=== PATIENT | male | born 1980 | race Asian ===

== ENCOUNTER 2019-09-25 02:36 | Emergency (ER) | payer OTHER ==
[~2019-09-25] VITALS: Ht 175.3 cm; Wt 77.1 kg
--- NOTE | 2019-09-25 02:58 | NUR ---
BIB FAMILY AND FRIEND FOR C/O R KNEE PAIN S/P FALLING FROM SLIPPERY STEPS WHI;E GOING DOWN. PT DENIED HITTING HIS HEAD. - KO. R KNEE SKIN INTACT. - BRUISE NOTED AT TIME. VSS. WILL CONT TO MONITOR ,
[2019-09-25] MEDS ORDERED: IBUPROFEN 600 MG TABLET PO ONE (03:02)
[2019-09-25] MEDS: IBUPROFEN 600 MG TABLET PO ONE (03:04)
--- NOTE | 2019-09-25 06:06 | NUR ---
pt was provided w/ crutches and long posterior hard splint. instruction given for use of crutches w/ understanding and demonstration. Patient discharged to home in stable condition. Rx and Written and verbal after care instructions given. Patient verbalizes understanding of instruction.
[2019-09-25 06:09] VITALS: BP 137/57
== END 2019-09-25 06:11 | disposition home or self-care (01) ==
LOC: ER 02:37
DX: S82.141A Displaced bicondylar fracture of right tibia, initial encounter for closed fracture (principal); F17.200 Nicotine dependence, unspecified, uncomplicated; W10.8XXA Fall (on) (from) other stairs and steps, initial encounter; Y93.89 Activity, other specified; Y92.89 Other specified places as the place of occurrence of the external cause; Y99.8 Other external cause status
CPT/HCPCS: 73564-TC

== ENCOUNTER 2020-12-02 13:26 | Emergency (ER) | payer OTHER ==
[~2020-12-02] VITALS: Ht 167.6 cm; Wt 70.3 kg
--- NOTE | 2020-12-02 13:45 | NUR ---
BIBS FROM HOME TO ER BED 6. AAOX4. NOT IN RESP DISTRESS. AMBULATROY. CAME IN FOR FEVER X 10 DAYS.PER PT, HE HAS BEEN HAVING TEMPS FROM 100 TO 102 DEG. DENIES ANY PAIN/ NO DISCOMFORT DURING URINATION. DENIES AND COUGH NOR SOB. AWAITING MD FOR EVAL
[2020-12-02] MEDS ORDERED: ACETAMINOPHEN ES 500 MG TABLET PO ONE (14:30)
[2020-12-02] MEDS ORDERED: IV NS 0.9% 1,000 ML BAG IV ONE (14:30)
[2020-12-02 14:34] LABS: BASOPHILS # (AUTO) 0.1 /CMM (0.0-0.2); BASOPHILS % (AUTO) 0.9 % (0.0-2.0); HEMATOCRIT 40 % (39-51); HEMOGLOBIN 13.3 g/dL (13.5-17.5); LYMPHOCYTES # (AUTO) 4.4 /CMM (0.8-4.8); LYMPHOCYTES % (AUTO) 33.1 % (20.0-44.0); MEAN CORPUSCULAR HGB CONC 34 g/dl (31.0-36.0); MEAN CORPUSCULAR VOLUME 94 fL (80-96); MONOCYTES # (AUTO) 1.2 /CMM (0.1-1.30); NEUTROPHILS # (AUTO) 7.4 /CMM (1.8-8.9); PLATELET COUNT (AUTO) 421 /CMM (150-450); WHITE BLOOD COUNT (AUTO) 13.2 K/uL (4.3-11.0)
[2020-12-02 14:43] LABS: CALCIUM, SERUM 8.9 mg/dL (8.5-10.1); POTASSIUM 4.5 mmol/L (3.5-5.1)
--- NOTE | 2020-12-02 15:20 | NUR ---
covid negative per lab
[2020-12-02] MEDS ORDERED: ACETAMINOPHEN ES 500 MG TABLET ONE (15:31)
--- NOTE | 2020-12-02 16:28 | NUR ---
LUMBAR PUNTURE WITH SPINAL TAP DONE BY / BELLA AT BEDSIDE. FLUID COLLECTED BY AND WILL SEND TO LAB
--- NOTE | 2020-12-02 16:40 | NUR ---
SINAL TAP SPECIMEN BROUGHT TO LAB.
[2020-12-02 17:25] LABS: CSF GLUCOSE 55 mg/dL (40-70)
[2020-12-02 17:33] LABS: CSF PROTEIN 49.1 mg/dL (15-45)
[2020-12-02 18:03] VITALS: BP 135/85
--- NOTE | 2020-12-02 18:03 | NUR ---
Patient discharged to home in stable condition. Written and verbal after care instructions given. Patient verbalizes understanding of instruction.IV removed. Catheter intact and site benign. Pressure and 4x4 applied to site. No bleeding noted. Pt ambulatory with a steady gait
== END 2020-12-02 18:03 | disposition home or self-care (01) ==
LOC: ER 13:26
DX: R50.9 Fever, unspecified (principal); R51.9 Headache, unspecified; D72.829 Elevated white blood cell count, unspecified; Z20.822 Contact with and (suspected) exposure to COVID-19
CPT/HCPCS: 36415; 62270; 80048; 83605; 85025; 85730; 86592; 87040 ×2; 87070; 87426; 87804; 89051; 96360; 99285; A6403; C9803; J7030